=== PATIENT | female | born 1970 | race Caucasian/White ===

== ENCOUNTER 2018-06-25 12:18 | Emergency (ER) | payer OTHER, MEDICAID ==
--- NOTE | 2018-06-25 13:15 | EDPHY ---
H & P Time Seen by Provider: 06/25/18 12:52 HPI/ROS: CHIEF COMPLAINT: Right shoulder pain, right abdomen pain, right hip pain HISTORY OF PRESENT ILLNESS: Patient is a 48-year-old female who presents emergency department after having a fall while skiing at [place]. Patient was on steep incline when she fell over onto her right side. She went down the hill. She was extricated by lambskin trimmer. She complains of diffuse right shoulder pain. It is moderate. It is worse with movement. Patient also complains of right side, right abdomen, and right hip pain. The patient denies any neck pain or back pain at rest. She has no chest pain or shortness of breath. No nausea or vomiting. The patient has no numbness or tingling. Patient denies striking her head or losing consciousness. REVIEW OF SYSTEMS: 10 systems were reveiwed and are negative with the exception of the elements mentioned in the history of present illness. Past Medical/Surgical History: Includes depression Social history: Patient does not smoke. Smoking Status: Former smoker Physical Exam: Vitals noted GENERAL: Well-appearing, in no acute distress, alert. HEAD: No evidence of trauma. EYES: PERRLA, EOMI, normal to inspection. ENT: Airway intact, no dental or oral injury, no malocclusion, no hemotympanum , normal external examination. NECK: The trachea is midline. There is no crepitus. Patient has mild mid cervical spine tenderness to palpation. There is no step-off or deformity. RESPIRATORY: [Clear to auscultation bilaterally, no rales, rhonchi or wheezing. Chest wall: Normal to appearance. Mild right-sided chest wall tenderness palpation. No crepitus. CVS: Regular rate and rhythm, no rubs, murmurs, or gallops. ABDOMEN: Soft, right upper quadrant tenderness to palpation with no rebound or guarding, nondistended, no bruising or abrasions. Pelvis: Stable. Mild right lateral pelvis tenderness to palpation. BACK: Normal to inspection, no spinal tenderness, no spinal step off, no notable bruising or abrasions. SKIN: Normal color, warm, dry. No pallor or diaphoresis. EXTREMITIES: Right upper extremity: Diffuse tenderness to palpation over her right shoulder. There is no notable deformity. No clavicular tenderness to palpation. Neurovascular intact distally. Left upper extremity: Atraumatic. No visible signs of trauma. No tenderness palpation. Neurovascular intact distally. Right lower extremity: Patient is able to range her right hip. She has mild right lateral pelvic tenderness palpation but no specific hip tenderness to palpation. No visible signs of trauma. No tenderness palpation. Neurovascular intact distally. Left lower extremity: Atraumatic. No visible signs of trauma. No tenderness palpation. Neurovascular intact distally. NEURO/PSYCH: Alert and oriented x 3, GCS 15, normal mood and affect, normal motor sensory exam. Constitutional: Initial Vital Signs Temperature (C) 36.7 C 06/25/18 12:24 Heart Rate 90 06/25/18 12:24 Respiratory Rate 16 06/25/18 12:24 Blood Pressure 117/89 H 06/25/18 12:24 O2 Sat (%) 96 06/25/18 12:24 O2 Delivery Mode Room Air Allergies/Adverse Reactions: Penicillins Allergy (Verified 06/25/18 12:24) Home Medications: Medication Instructions Recorded Prozac 10 MG (*) 06/25/18 Medical Decision Making - Diagnostics Imaging Results: Imaging Impressions Chest X-Ray 06/25/18 12:59 IMPRESSION: No evidence for acute cardiopulmonary abnormality. Humerus X-Ray 06/25/18 12:59 Impression: No evidence for acute osseous abnormality of right shoulder or right humerus. Shoulder X-Ray 06/25/18 12:59 Impression: No evidence for acute osseous abnormality of right shoulder or right humerus. Abdomen CT 06/25/18 13:17 Impression: No evidence for acute intraabdominal or pelvic abnormality. Moderate constipation. IUD in the uterus. Renal cortical cysts bilaterally. Results called and discussed with Nirmala Osuna on 06/25/2018 at [address] 06/25/18 13:17 Impression: Multilevel degenerative disk and degenerative joint disease in the cervical spine, most severe at C5-C6 and C6-C7. No evidence for acute fracture. Results called and discussed with Nirmala Osuna on 06/25/2018 at 1408 hours. ED Course/Re-evaluation: In the emergency department I discussed possible etiologies with the patient. I answered all her questions. Patient consented to imaging. Right shoulder, right humerus, and chest x-ray were ordered. Because of the patient's abdominal pain CT of the abdomen and pelvis was ordered. Patient also had right lateral pelvic tenderness palpation. 14 15: I discussed the case with Dr. Perdomo. No noted injury on chest x-ray, humerus x-ray, shoulder x-ray, C-spine, abdomen pelvis CT. I rechecked the patient. I discussed the results. She was given warnings prior to leaving. She will return with worsening symptoms. Differential Diagnosis: Ventral includes but not limited to contusion sprain, shoulder dislocation, fracture, chest wall contusion, pneumothorax, hemothorax, rib fracture, liver injury, kidney injury, viscus injury, pelvic fracture, hip fracture - Data Points Point of Care Test Results: Urine HCG Results Negative Departure - Departure Disposition: Home, Routine, Self-Care Clinical Impression: Shoulder contusion Qualifiers: Encounter type: initial encounter Laterality: right Qualified Code(s): S40.011A - Contusion of right shoulder, initial encounter Chest wall contusion Qualifiers: Encounter type: initial encounter Laterality: right Qualified Code(s): S20.211A - Contusion of right front wall of thorax, initial encounter Cervical strain, acute Qualifiers: Encounter type: initial encounter Qualified Code(s): S16.1XXA - Strain of muscle, fascia and tendon at neck level, initial encounter Condition: Good Instructions: Shoulder Sprain (ED), Hip Contusion (ED) Additional Instructions: Return with increasing abdominal pain, vomiting, shortness of breath, weakness, numbness, fever or any other concerns. Use your sling for comfort. Follow up with Orthopedics. You been given contact information for Dr. Zhang. Referrals: Amada Jacobs MD [Medical Doctor] - 5-7 days, if not improved Raimundo Zhang MD [Medical Doctor] - 5-7 days, call for appt.
[2018-06-25] MEDS ORDERED: IOPAMIDOL (ISOVUE-300) 100 ML BTL ONE (13:34)
[2018-06-25] MEDS ORDERED: ONDANSETRON DISINTEGRATING 4 MG TAB PO ONE (14:35)
[2018-06-25 14:43] VITALS: BP 121/87
== END 2018-06-25 14:42 | disposition home or self-care (01) ==
DX: S40.011A Contusion of right shoulder, initial encounter (principal); S20.211A Contusion of right front wall of thorax, initial encounter; S16.1XXA Strain of muscle, fascia and tendon at neck level, initial encounter; M25.551 Pain in right hip; V00.321A Fall from snow-skis, initial encounter; Y93.24 Activity, cross country skiing; Y92.838 Other recreation area as the place of occurrence of the external cause
CPT/HCPCS: 71045; 72125; 73030; 73060; 74177; 99285; A4565; Q9967